=== PATIENT | male | born 1955 | race Caucasian/White ===

== ENCOUNTER 2016-12-30 12:57 | Day surgery (SDC) | payer BC ==
--- NOTE | ~2016-12-30 | OP ---
Record Of Operation [facility] [address] [place]. [address] NAME: LANCE TURNER : 51 STATUS : [facility]#: [id number] AGE: 61 ADM/REG DATE : 12/30/16 MR#: [id number] REPORT SERV DATE: 12/30/16 DICTATED BY: KAVIN EDGAR DATE: 12/30/16 REPORT STATUS : Draft TRANSCRIBED BY: MODL DATE: 12/30/16 DATE OF PROCEDURE: 12/30/2016 PREOPERATIVE DIAGNOSES: Left ureteral stone. Left renal stone. Right renal pelvic stone and right renal stones. INR of 5.2. POSTOPERATIVE DIAGNOSES: Left ureteral stone. Left renal stone. Right renal pelvic stone and right renal stones. INR of 5.2. Urethral stricture. PROCEDURES: Cystoscopy. Bilateral retrograde pyelogram. Bilateral ureteral stents. ANESTHESIA: General. SPECIMENS: None. ESTIMATED BLOOD LOSS: Minimal. COMPLICATIONS: None. DRAINS: Bilateral 6 variable-length double-J ureteral stents without strings. DISPOSITION: Extubated to recovery room in good condition. HISTORY: This is a 61-year-old gentleman, who came to see me yesterday with the above-stated problems. The plan today was to treat his left ureteral stone and renal stones with ureteroscopy and lasers and place bilateral ureteral stents and then come back in 10 days and treat the right side with lasers and remove his left ureteral stent. However today when his laboratory tests were drawn, his INR which usually runs at 2.5, is 5.2. The patient states when he had it last checked a month ago, it was 2.6. He is due to see his Coumadin Clinic in 2 days. Due to his extensive bleeding risk combined with his obstructing stone and pain, we have altered his procedure to that above. PROCEDURE IN DETAIL: After consent was obtained, the patient was taken to the operating room and placed on the operative table in supine position. General anesthetic was induced. The patient was then placed in dorsal lithotomy position. His perineum was prepped and draped in the usual sterile fashion. Of note, the patient received vancomycin 1 g in the operating room as well. Cystourethroscopy was performed with a 30-degree lens. 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 A 20-Ghanaian sheath was able to pass through this area. The bladder was systematically evaluated. Both ureteral orifices were noted. No efflux was seen from the left ureteral orifice. There was no evidence of any tumor, stones, or foreign body seen in the bladder. Left retrograde pyelogram was performed of the left ureter. This showed normal caliber ureter up to a proximal ureteral stone. We could not a get any contrast to pass beyond the stone. We could see his stones located in the kidney. A Bentson guidewire was passed up to the stone. We did advance the open-ended up to the stone. With some manipulation, we were able to get the wire past the Record Of Operation [facility] [address]. [address] NAME: LANCE TURNER : 51 STATUS : [facility]#: [id number] AGE: 61 ADM/REG DATE : 12/30/16 MR#: [id number] REPORT SERV DATE: 12/30/16 DICTATED BY: KAVIN EDGAR DATE: 12/30/16 REPORT STATUS : Draft TRANSCRIBED BY: ANNMARIE DATE: 12/30/16 stone. We were then able to pass the open-ended over the wire. The wire was removed. Hydronephrotic drip was seen. It was bloody. Retrograde performed showing we were in a dilated collecting system. The wire was advanced back through the open-ended and the open- ended was removed. The 6-Ghanaian variable length stent was passed over the wire with a good curl seen in the renal pelvis and in the bladder. It was seen to be draining bloody urine after it was placed. Attention was then paid to the right ureteral orifice. The open-ended was placed in the right ureteral orifice. A retrograde pyelogram was performed. This showed intermittently dilated ureter up to the renal pelvis. We could see the filling defect of the 8 mm stone in his renal pelvis. This is why we are stenting this side as well. The wire was easily passed up into the upper pole. The 6-Ghanaian variable length stent was passed over the wire with a good curl seen in the renal pelvis and in the bladder. It was seen to be draining after it was placed. The bladder was drained. The scope and sheath were removed. A 20 mg of Lasix was given to the patient. He was placed back in the supine position, extubated, and taken to the recovery room in good condition. PLAN: The plan will be to send him home today. He is going to call his Coumadin doctor tomorrow about his elevated INR. The plan will be to proceed with the left-sided stone treatment once his INR is down between 2.5 and 3. Hopefully, this will occur at his scheduled surgery time on the which was scheduled to perform surgery on the right side. We will amend this to treat his left side as was scheduled for today. We will then schedule treatment of his right-side 7 to 10 days later. All of his prescriptions were given to him at his office visit. He does need force fluids to keep his urine clear. ESTELLA/ANNMARIE Kavin Edgar M.D. / [id number] CC: Vicki Tate
[~2016-12-30 12:57] MED LIST: COUMADIN10 MG PO; GLUCPH PO; LIPITOR20 PO; LIPITOR40 PO; LOP25 PO; PERCOCET 10/3251 TAB PO; PRIN5 PO; T PO; TUMSROLL PO; TYLENOL ARTH650 MG PO
[2016-12-30 13:25] LABS: WBC (NOT ORDERED) (RFLEX) 0 (0-5)
[2016-12-30 13:29] LABS: BASOPHILS 0.2 %; BASOPHILS ABSOLUTE 0.02 10/3/uL (0.0-0.16); EOSINOPHILS 0.6 %; EOSINOPHILS ABSOLUTE 0.06 10/3/uL (0.0-0.53); HEMOGLOBIN 17.6 g/dL (13.6-17.8); IMMATURE GRANULOCYTES 0.2 %; IMMATURE GRANULOCYTES ABSOLUTE 0.02 10/3/uL (0.0-0.11); LYMPHOCYTES 10.8 %; LYMPHOCYTES ABSOLUTE 1.09 10/3/uL (0.67-4.30); MANUAL DIFF NO %; MEAN CORPUS HGB CONC 34.5 g/dL (32.0-36.0); MEAN CORPUSCULAR HEMOGLOB 30.9 pg (26.0-34.0); MEAN CORPUSCULAR VOLUME 89.5 fL (80-100); MEAN PLATELET VOLUME 10.1 fL (9.2-13.0); MONOCYTES 7.2 %; MONOCYTES ABSOLUTE 0.73 10/3/uL (0.21-1.20); NEUTROPHILS ABSOLUTE 8.19 10/3/uL (2.02-8.40); PLATELET COUNT 164 10/3/uL (150-400); RBC DISTRIBUTION WIDTH 13.6 % (12.0-16.0); WHITE BLOOD CELLS 10.1 10/3/uL (4.5-10.5)
[2016-12-30 13:36] LABS: ASCORBIC ACID (UR NOT ORDER) NEG (NEG); BILIRUBIN, URINE NEGATIVE (NEG); KETONE, URINE 20 MG/DL (NEG); LEUKOCYTE ESTERASE(NOT OR NEG (NEG)
[2016-12-30 13:38] LABS: PARTIAL THROMBO TIME 63.7 SEC (22.5-37.2)
[2016-12-30 13:39] LABS: INTERNATIONAL NORMAL RATI 5.2 UNITS (-); PROTIME (NOT ORD) 47.4 SEC (12.0-14.5)
[2016-12-30 13:49] LABS: CALCIUM, SERUM 8.9 MG/DL (8.5-10.4); CHLORIDE, SERUM 100 MMOL/L (96-112); CO2 (CARBON DIOXIDE) 28 MMOL/L (24-34); GLUCOSE, SERUM 102 MG/DL (60-99); POTASSIUM, SERUM 4.4 MMOL/L (3.5-5.3); SODIUM, SERUM 137 MMOL/L (135-148)
[2016-12-30 13:50] LABS: BUN (BLOOD UREA NITROGEN) 25 MG/DL (6-23); CREATININE 2.12 MG/DL (0.70-1.30); GFR AFRICAN AMERICAN 37 ML/MIN (>=60); GFR NON AFRICAN AMERICAN 32 ML/MIN (>=60)
[2017-01-07] MEDS ORDERED: DITRO5 PO (09:38)
== END 2016-12-30 19:04 | disposition home or self-care (01) ==
LOC: SDC 12:57
PROVIDERS: Urology
PROC: BT14ZZZ Fluoroscopy of Kidneys, Ureters and Bladder (ICD-10-PCS; 2016-12-30)
PROC: 0WHR8YZ Insertion of Other Device into Genitourinary Tract, Via Natural or Artificial Opening Endoscopic (ICD-10-PCS; 2016-12-30)
PROC: 0T788DZ Dilation of Bilateral Ureters with Intraluminal Device, Via Natural or Artificial Opening Endoscopic (ICD-10-PCS; principal; 2016-12-30 14:30)
DX: N20.2 Calculus of kidney with calculus of ureter (principal); N35.9 Urethral stricture, unspecified; E78.5 Hyperlipidemia, unspecified; E11.9 Type 2 diabetes mellitus without complications; Z86.73 Personal history of transient ischemic attack (TIA), and cerebral infarction without residual deficits; I12.9 Hypertensive chronic kidney disease with stage 1 through stage 4 chronic kidney disease, or unspecified chronic kidney disease; N18.9 Chronic kidney disease, unspecified
CPT/HCPCS: 74420; 80048; 81001; 82962; 84153; 85025; 85610; 85730; 93005; C1758; C1769; C2617; J2250; J2405; J3010; J3370; Q9967